=== PATIENT | male | born 1990 | race Caucasian/White ===

== ENCOUNTER 2022-09-01 18:22 | Inpatient (IN) ==
[2022-09-01] MEDS ORDERED: Naloxone 0.4 MG/ML INJ IVP PRN (20:33)
[2022-09-01] MEDS ORDERED: Acetaminophen 325 MG TABLET PO PRN (20:33)
[2022-09-01] MEDS ORDERED: Melatonin 3 MG TABLET PO PRN (20:33)
[2022-09-01] MEDS: Pantoprazole 40 MG in 0.9 % Sodium Chloride Mini Bag 100 ML IVC SCH (21:12)
[2022-09-01] MEDS: Ringers Solution, Lactated 1,000 ML IVC SCH (21:13)
[2022-09-01] MEDS ORDERED: Pregabalin 50 MG CAPSULE PO SCH (21:45)
[2022-09-01] MEDS: cefTRIAXone 1,000 MG in 0.9 % Sodium Chloride Mini Bag 100 ML IVPB SCH (22:07)
[2022-09-01] MEDS: *HR* OxyCODONE Immed Rel 15 MG TABLET PO SCH (23:07)
[2022-09-01] MEDS: Ondansetron 4 MG/2 ML VIAL IVP PRN (23:10)
[2022-09-01 23:13] LABS: Basophils % 0.4 %; Platelet Count 159 K/mcL (140-400)
[2022-09-01 23:15] LABS: Basophils # 0.1 K/mcL (0.0-0.2); Eosinophils # 0.1 K/mcL (0.0-0.6); Eosinophils % 0.5 %; Hematocrit 46.3 % (37.5-50.1); Hemoglobin 15.6 g/dL (12.9-16.9); Immature Granulocytes % 0.6 % (0-4); Lymphocytes # 1.4 K/mcL (0.6-4.6); Lymphocytes % 5.2 %; Mean Corpuscular HGB Conc 33.7 g/dL (31.6-35.5); Mean Platelet Volume 11.4 fL (9.4-12.4); Monocytes # 3.3 K/mcL (0.0-1.3); Monocytes % 12.3 %; Neutrophils # 21.8 K/mcL (1.6-8.9); Red Blood Count 5.03 M/mcL (4.19-5.50); White Blood Count 26.9 K/mcL (4.3-11.1)
[2022-09-01 23:32] LABS: Reactive Lymphocytes Present (Not Present)
[2022-09-01 23:35] LABS: BUN/Creatinine Ratio 64 (6-26); Blood Urea Nitrogen 48 mg/dL (6-20); Calcium 5.9 mg/dL (8.6-10.3); Carbon Dioxide 23 mEq/L (23-29); Chloride 102 mEq/L (98-107); Glucose 120 mg/dL (70-105); Osmolality,Calculated 286 (280-300); Potassium 4.1 mEq/L (3.5-5.1); Sodium 131 mEq/L (136-145)
[2022-09-02] MEDS ORDERED: *HR* OxyCODONE/APAP 10/325 TABLET PO SCH
[2022-09-02] MEDS: Calcium Gluconate 1gm/50mL 1 GM/50 ML BAG IVPB SCH ×2 (03:18→03:58)
[2022-09-02] MEDS: Pantoprazole 40 MG in 0.9 % Sodium Chloride Mini Bag 100 ML IVC SCH ×4 (03:19→23:50)
[2022-09-02 04:52] LABS: Mean Platelet Volume 11.5 fL (9.4-12.4)
[2022-09-02 04:54] LABS: Hematocrit 46.2 % (37.5-50.1); Hemoglobin 15.5 g/dL (12.9-16.9); Mean Corpuscular HGB Conc 33.5 g/dL (31.6-35.5); Mean Corpuscular Hemoglobin 30.9 pg (28.0-33.3); Platelet Count 148 K/mcL (140-400); Red Blood Count 5.02 M/mcL (4.19-5.50); White Blood Count 27.1 K/mcL (4.3-11.1)
[2022-09-02 05:00] LABS: INR 1.7; Prothrombin Time 18.9 Seconds (9.4-12.1)
[2022-09-02 05:01] LABS: VBG Ionized Calcium 1.11 mmol/L (1.15-1.35)
[2022-09-02 05:03] LABS: Activated Partial Thrombo Time 31.7 Seconds (26.0-36.0)
[2022-09-02 05:10] LABS: BUN/Creatinine Ratio 58 (6-26); Blood Urea Nitrogen 45 mg/dL (6-20); Calcium 7.9 mg/dL (8.6-10.3); Carbon Dioxide 25 mEq/L (23-29); Chloride 99 mEq/L (98-107); Chol/HDL Ratio 6.4 (0-4.9); Cholesterol 103 mg/dL (< 200); Glucose 120 mg/dL (70-105); HDL Cholesterol 16 mg/dL (40-59); LDL Cholesterol,Calculated 42 mg/dL (< 100); Magnesium 2.1 mg/dL (1.6-2.6); Osmolality,Calculated 285 (280-300); Phosphorous 2.5 mg/dL (2.7-4.5); Potassium 4.6 mEq/L (3.5-5.1); Sodium 131 mEq/L (136-145); Triglycerides 224 mg/dL (< 150)
[2022-09-02] MEDS: *HR* OxyCODONE Immed Rel 15 MG TABLET PO SCH ×4 (05:33→23:50)
[2022-09-02 05:39] LABS: Lymphocytes # 2.2 K/mcL (0.6-4.6); Monocytes # 3.8 K/mcL (0.0-1.3); Neutrophils # 21.1 K/mcL (1.6-8.9)
[2022-09-02] MEDS: Pregabalin 75 MG CAPSULE PO SCH ×3 (07:56→20:37)
[2022-09-02] MEDS: tiZANidine 4 MG TABLET PO SCH (07:56)
[2022-09-02] MEDS: Cholecalciferol (D-3) 1,000 UNIT (25MCG) TABLET PO SCH (07:56)
[2022-09-02] MEDS: Docusate Oral Soln 100 MG/10 ML UDC PO SCH (08:00)
[2022-09-02] MEDS ORDERED: Simethicone 40 MG/0.6 ML MLS ONE (13:36)
[2022-09-02] MEDS ORDERED: *HR* Propofol 200 MG/20 ML VIAL IVP ONE (13:50)
[2022-09-02] MEDS ORDERED: Lidocaine -MPF 2% 2 ML VIAL ONE (13:53)
[2022-09-02] MEDS ORDERED: Lidocaine -MPF 4% 5 ML AMPUL ONE (13:53)
[2022-09-02] MEDS ORDERED: DICLOFENAC SODIUM TP PRN (14:23)
[2022-09-02] MEDS ORDERED: 0.9 % Sodium Chloride 1,000 ML IV ONE (14:57)
[2022-09-02] MEDS ORDERED: NON-FORMULARY MEDICATION 1 EACH EACH (Pregabalin [Lyrica] 150 MG Capsule) PO SCH (15:00)
[2022-09-02] MEDS: ALPRAZolam 1 MG TABLET PO SCH ×2 (16:58→20:37)
[2022-09-02] MEDS: MetroNIDAZOLE 500 MG/100 ML 500 MG/100 ML BAG IVPB SCH (20:32)
[2022-09-02] MEDS: Sennosides 8.6 MG TABLET PO SCH (20:40)
[2022-09-02] MEDS: cefTRIAXone 1,000 MG in 0.9 % Sodium Chloride Mini Bag 100 ML IVPB SCH (20:42)
[2022-09-03] MEDS: MetroNIDAZOLE 500 MG/100 ML 500 MG/100 ML BAG IVPB SCH (01:55)
[2022-09-03 02:16] LABS: Hemoglobin 14.3 g/dL (12.9-16.9); Mean Corpuscular Hemoglobin 31.2 pg (28.0-33.3); Mean Corpuscular Volume 91.9 fL (83.0-100.0); Red Cell Distribution Width 13.1 % (11.5-14.5)
[2022-09-03 02:18] LABS: Basophils # 0.1 K/mcL (0.0-0.2); Basophils % 0.5 %; Hematocrit 42.1 % (37.5-50.1); Immature Granulocytes % 4.9 % (0-4); Immature Platelets 9.2 % (1.1-6.1); Lymphocytes # 1.2 K/mcL (0.6-4.6); Lymphocytes % 6.4 %; Mean Platelet Volume 11.6 fL (9.4-12.4); Monocytes # 2.4 K/mcL (0.0-1.3); Monocytes % 13.1 %; Neutrophils # 13.8 K/mcL (1.6-8.9); Platelet Count 121 K/mcL (140-400); Red Blood Count 4.58 M/mcL (4.19-5.50); Segmented Neutrophils % 75.1 %; White Blood Count 18.4 K/mcL (4.3-11.1)
[2022-09-03 02:30] LABS: BUN/Creatinine Ratio 53 (6-26); Blood Urea Nitrogen 41 mg/dL (6-20); Calcium 7.4 mg/dL (8.6-10.3); Carbon Dioxide 27 mEq/L (23-29); Chloride 103 mEq/L (98-107); Glucose 111 mg/dL (70-105); Osmolality,Calculated 287 (280-300); Potassium 4.3 mEq/L (3.5-5.1); Sodium 133 mEq/L (136-145)
[2022-09-03] MEDS: Pantoprazole 40 MG in 0.9 % Sodium Chloride Mini Bag 100 ML IVC SCH ×4 (03:54→16:45)
[2022-09-03] MEDS: Ringers Solution, Lactated 1,000 ML IVC SCH (03:55)
[2022-09-03] MEDS: *HR* OxyCODONE Immed Rel 15 MG TABLET PO SCH ×3 (05:36→17:59)
[2022-09-03] MEDS ORDERED: NON-FORMULARY MEDICATION 1 EACH EACH (Cholecalciferol (Vitamin D3) [Vitamin D3] 25 MCG Cap PO SCH (09:00)
[2022-09-03] MEDS: Piperacillin/Tazobactam 3.375 GM in 0.9 % Sodium Chloride Mini Bag 100 ML IVPB SCH ×3 (09:16→23:14)
[2022-09-03] MEDS: Pregabalin 75 MG CAPSULE PO SCH ×3 (11:20→20:34)
[2022-09-03] MEDS: Cholecalciferol (D-3) 1,000 UNIT (25MCG) TABLET PO SCH (11:23)
[2022-09-03] MEDS: Loratadine 10 MG TABLET PO SCH (11:23)
[2022-09-03] MEDS: tiZANidine 4 MG TABLET PO SCH (11:23)
[2022-09-03] MEDS: ALPRAZolam 1 MG TABLET PO SCH (11:24)
[2022-09-03] MEDS: Sennosides 8.6 MG TABLET PO SCH ×3 (11:27→21:58)
[2022-09-03] MEDS: Docusate Oral Soln 100 MG/10 ML UDC PO SCH (11:27)
[2022-09-03] MEDS ORDERED: 0.9 % Sodium Chloride 1,000 ML ONE ×2 (15:02→18:16)
[2022-09-03] MEDS ORDERED: Albumin 25% 25gram/100mL 25 GM/100 ML IV.SOLN IVPB ONE (22:38)
[2022-09-04] MEDS: Pantoprazole 40 MG in 0.9 % Sodium Chloride Mini Bag 100 ML IVC SCH ×5 (02:53→21:44)
[2022-09-04] MEDS ORDERED: Albumin 25% 25gram/100mL 25 GM/100 ML IV.SOLN IVPB ONE (06:53)
[2022-09-04] MEDS: Loratadine 10 MG TABLET PO SCH (08:45)
[2022-09-04] MEDS: Pregabalin 75 MG CAPSULE PO SCH ×3 (08:46→20:10)
[2022-09-04] MEDS: Sennosides 8.6 MG TABLET PO SCH ×2 (08:46→20:10)
[2022-09-04] MEDS: Cholecalciferol (D-3) 1,000 UNIT (25MCG) TABLET PO SCH (08:46)
[2022-09-04] MEDS: Docusate Oral Soln 100 MG/10 ML UDC PO SCH (08:48)
[2022-09-04 09:36] LABS: Mean Platelet Volume 11.5 fL (9.4-12.4); Red Cell Distribution Width 13.2 % (11.5-14.5)
[2022-09-04 09:38] LABS: Hematocrit 36.1 % (37.5-50.1); Hemoglobin 12.2 g/dL (12.9-16.9); Immature Platelets 8.8 % (1.1-6.1); Mean Corpuscular HGB Conc 33.8 g/dL (31.6-35.5); Mean Corpuscular Volume 91.6 fL (83.0-100.0); Monocytes # 1.2 K/mcL (0.0-1.3); Nucleated Red Blood Cells 0.2 /100 WBC (0); Platelet Count 103 K/mcL (140-400); Red Blood Count 3.94 M/mcL (4.19-5.50); White Blood Count 10.1 K/mcL (4.3-11.1)
[2022-09-04 10:18] LABS: Lymphocytes # 1.2 K/mcL (0.6-4.6); Neutrophils # 7.5 K/mcL (1.6-8.9)
[2022-09-04 10:19] LABS: Platelet Estimate Slight Decrease (Normal)
[2022-09-04 11:05] LABS: BUN/Creatinine Ratio 37 (6-26); Blood Urea Nitrogen 22 mg/dL (6-20); Calcium 7.4 mg/dL (8.6-10.3); Carbon Dioxide 26 mEq/L (23-29); Chloride 108 mEq/L (98-107); Glucose 87 mg/dL (70-105); Osmolality,Calculated 291 (280-300); Potassium 2.9 mEq/L (3.5-5.1); Sodium 139 mEq/L (136-145)
[2022-09-04] MEDS: Piperacillin/Tazobactam 3.375 GM in 0.9 % Sodium Chloride Mini Bag 100 ML IVPB SCH ×2 (11:08→21:35)
[2022-09-04] MEDS: 0.9 % Sodium Chloride 1,000 ML IVC SCH ×2 (11:20→21:36)
[2022-09-04 12:29] LABS: Adenovirus F 40/41 PCR Not detected (Not detect); Astrovirus PCR Not detected (Not detect); Campylobacter by PCR Not detected (Not detect); Cryptosporidium by PCR Not detected (Not detect); Cyclospora cayetanensis PCR Not detected (Not detect); Entamoeba histolytica PCR Not detected (Not detect); Enteroaggregative E.coli(EAEC) Not detected (Not detect); Enteropathogenic E.coli(EPEC) Not detected (Not detect); Enterotoxigenic E.coli (ETEC) Not detected (Not detect); Giardia lamblia PCR Not detected (Not detect); Norovirus GI/GII PCR Not detected (Not detect); Plesiomonas shigelloides PCR Not detected (Not detect); Rotavirus A PCR Not detected (Not detect); Salmonella PCR Not detected (Not detect); Sapovirus PCR Not detected (Not detect); Shig/EnteroinvasiveE coli EIEC Not detected (Not detect); Shigalike tox-prod E coli STEC Not detected (Not detect); Vibrio PCR Not detected (Not detect); Vibrio cholerae PCR Not detected (Not detect); Yersinia enterocolitica PCR Not detected (Not detect)
[2022-09-04 12:48] LABS: C.difficile Toxin A/B Gene PCR DETECTED (Not detect)
[2022-09-04] MEDS ORDERED: *HR* Propofol 200 MG/20 ML VIAL IVP ONE (13:19)
[2022-09-04] MEDS ORDERED: Lidocaine -MPF 2% 2 ML VIAL ONE (13:19)
[2022-09-04] MEDS: Albumin 25% 25gram/100mL 25 GM/100 ML IV.SOLN IVPB ONE ×2 (15:54→17:41)
[2022-09-04] MEDS: Vancomycin Oral Soln 125 MG/2.5 ML UDC PO SCH ×2 (16:48→20:10)
[2022-09-04] MEDS ORDERED: Potassium Chloride Elixir 20 MEQ/15 ML UDC PO SCH (21:00)
[2022-09-05] MEDS: Pantoprazole 40 MG in 0.9 % Sodium Chloride Mini Bag 100 ML IVC SCH ×2 (02:41→18:19)
[2022-09-05] MEDS: Piperacillin/Tazobactam 3.375 GM in 0.9 % Sodium Chloride Mini Bag 100 ML IVPB SCH ×4 (03:03→21:07)
[2022-09-05 05:33] LABS: Basophils % 0.1 %; Eosinophils # 0.1 K/mcL (0.0-0.6); Eosinophils % 1.4 %; Hematocrit 31.4 % (37.5-50.1); Hemoglobin 10.9 g/dL (12.9-16.9); Immature Granulocytes % 11.7 % (0-4); Lymphocytes # 1.1 K/mcL (0.6-4.6); Mean Corpuscular HGB Conc 34.7 g/dL (31.6-35.5); Mean Corpuscular Hemoglobin 31.6 pg (28.0-33.3); Mean Platelet Volume 10.8 fL (9.4-12.4); Monocytes # 0.9 K/mcL (0.0-1.3); Monocytes % 10.4 %; Neutrophils # 5.6 K/mcL (1.6-8.9); Platelet Count 111 K/mcL (140-400); Red Blood Count 3.45 M/mcL (4.19-5.50); Red Cell Distribution Width 13.5 % (11.5-14.5); Segmented Neutrophils % 63.4 %; White Blood Count 8.8 K/mcL (4.3-11.1)
[2022-09-05 05:37] LABS: Platelet Estimate Slight Decrease (Normal)
[2022-09-05 05:50] LABS: BUN/Creatinine Ratio 20 (6-26); Blood Urea Nitrogen 9 mg/dL (6-20); Calcium 7.4 mg/dL (8.6-10.3); Carbon Dioxide 24 mEq/L (23-29); Chloride 114 mEq/L (98-107); Glucose 88 mg/dL (70-105); Osmolality,Calculated 296 (280-300); Potassium 2.8 mEq/L (3.5-5.1); Sodium 144 mEq/L (136-145)
[2022-09-05] MEDS: *HR* OxyCODONE Immed Rel 15 MG TABLET PO SCH ×4 (09:52→23:35)
[2022-09-05] MEDS: Vancomycin Oral Soln 125 MG/2.5 ML UDC PO SCH ×4 (10:01→21:07)
[2022-09-05] MEDS: Loratadine 10 MG TABLET PO SCH (10:02)
[2022-09-05] MEDS: Docusate Oral Soln 100 MG/10 ML UDC PO SCH (10:03)
[2022-09-05] MEDS: Cholecalciferol (D-3) 1,000 UNIT (25MCG) TABLET PO SCH (10:03)
[2022-09-05] MEDS: Pregabalin 75 MG CAPSULE PO SCH ×3 (10:03→21:06)
[2022-09-05] MEDS: Sennosides 8.6 MG TABLET PO SCH ×2 (10:04→21:54)
[2022-09-05] MEDS: Potassium Chloride Elixir 20 MEQ/15 ML UDC PO SCH ×2 (10:11→21:07)
[2022-09-05] MEDS: 0.9 % Sodium Chloride 1,000 ML IVC SCH (11:40)
[2022-09-05] MEDS: Ringers Solution, Lactated 1,000 ML IVC SCH (11:51)
[2022-09-06] MEDS: *HR* OxyCODONE Immed Rel 15 MG TABLET PO SCH ×3 (05:47→18:31)
[2022-09-06] MEDS: Piperacillin/Tazobactam 3.375 GM in 0.9 % Sodium Chloride Mini Bag 100 ML IVPB SCH ×3 (05:48→21:21)
[2022-09-06 08:55] LABS: Hematocrit 34.3 % (37.5-50.1); Hemoglobin 11.8 g/dL (12.9-16.9); Mean Corpuscular HGB Conc 34.4 g/dL (31.6-35.5); Mean Corpuscular Hemoglobin 31.4 pg (28.0-33.3); Mean Corpuscular Volume 91.2 fL (83.0-100.0); Mean Platelet Volume 10.5 fL (9.4-12.4); Monocytes # 0.9 K/mcL (0.0-1.3); Platelet Count 118 K/mcL (140-400); Red Blood Count 3.76 M/mcL (4.19-5.50); Red Cell Distribution Width 14.2 % (11.5-14.5); White Blood Count 9.4 K/mcL (4.3-11.1)
[2022-09-06 09:15] LABS: BUN/Creatinine Ratio 10 (6-26); Blood Urea Nitrogen 4 mg/dL (6-20); Carbon Dioxide 25 mEq/L (23-29); Chloride 112 mEq/L (98-107); Glucose 95 mg/dL (70-105); Magnesium 1.6 mg/dL (1.6-2.6); Osmolality,Calculated 287 (280-300); Potassium 3.1 mEq/L (3.5-5.1); Sodium 140 mEq/L (136-145); Vancomycin,Trough 18 mcg/mL (5-10)
[2022-09-06 09:34] LABS: Eosinophils # 0.2 K/mcL (0.0-0.6); Lymphocytes # 1.1 K/mcL (0.6-4.6); Neutrophils # 5.6 K/mcL (1.6-8.9)
[2022-09-06 09:36] LABS: Platelet Estimate Slight Decrease (Normal)
[2022-09-06] MEDS: Vancomycin Oral Soln 125 MG/2.5 ML UDC PO SCH ×4 (10:04→21:21)
[2022-09-06] MEDS: Potassium Chloride Elixir 20 MEQ/15 ML UDC PO SCH ×2 (10:05→21:22)
[2022-09-06] MEDS: Loratadine 10 MG TABLET PO SCH (10:05)
[2022-09-06] MEDS: Pregabalin 75 MG CAPSULE PO SCH ×3 (10:05→21:20)
[2022-09-06] MEDS: Cholecalciferol (D-3) 1,000 UNIT (25MCG) TABLET PO SCH (10:05)
[2022-09-06] MEDS: Ringers Solution, Lactated 1,000 ML IVC SCH (10:07)
[2022-09-06] MEDS ORDERED: Vancomycin 1,500 MG/265 ML IV.SOLN IVPB SCH (13:00)
[2022-09-07] MEDS: *HR* OxyCODONE Immed Rel 15 MG TABLET PO SCH ×2 (00:14→07:35)
[2022-09-07] MEDS: Piperacillin/Tazobactam 3.375 GM in 0.9 % Sodium Chloride Mini Bag 100 ML IVPB SCH (05:15)
[2022-09-07 08:48] LABS: Hematocrit 34.8 % (37.5-50.1); Hemoglobin 11.8 g/dL (12.9-16.9); Mean Corpuscular HGB Conc 33.9 g/dL (31.6-35.5); Mean Corpuscular Hemoglobin 30.7 pg (28.0-33.3); Mean Corpuscular Volume 90.6 fL (83.0-100.0); Mean Platelet Volume 10.5 fL (9.4-12.4); Platelet Count 115 K/mcL (140-400); Red Blood Count 3.84 M/mcL (4.19-5.50); Red Cell Distribution Width 14.4 % (11.5-14.5)
[2022-09-07 09:05] LABS: BUN/Creatinine Ratio 4 (6-26); Blood Urea Nitrogen 2 mg/dL (6-20); Calcium 7.2 mg/dL (8.6-10.3); Carbon Dioxide 24 mEq/L (23-29); Chloride 111 mEq/L (98-107); Glucose 96 mg/dL (70-105); Magnesium 1.8 mg/dL (1.6-2.6); Osmolality,Calculated 288 (280-300); Potassium 3.1 mEq/L (3.5-5.1); Sodium 141 mEq/L (136-145)
[2022-09-07 09:31] LABS: Eosinophils # 0.3 K/mcL (0.0-0.6); Lymphocytes # 0.4 K/mcL (0.6-4.6)
[2022-09-07 09:34] LABS: Platelet Estimate Slight Decrease (Normal)
[2022-09-07] MEDS: Vancomycin Oral Soln 125 MG/2.5 ML UDC PO SCH ×2 (09:56→13:54)
[2022-09-07] MEDS: Cholecalciferol (D-3) 1,000 UNIT (25MCG) TABLET PO SCH (09:56)
[2022-09-07] MEDS: Pregabalin 75 MG CAPSULE PO SCH ×2 (09:56→15:31)
[2022-09-07] MEDS: Loratadine 10 MG TABLET PO SCH (09:56)
[2022-09-07] MEDS: Potassium Chloride Elixir 20 MEQ/15 ML UDC PO SCH (09:57)
[2022-09-07] MEDS: Ondansetron 4 MG/2 ML VIAL IVP PRN (10:11)
[2022-09-07 11:05] LABS: Influenza A PCR Negative (Negative); Influenza B PCR Negative (Negative); Resp. Syncytial Virus PCR Negative (Negative)
[2022-09-07 11:08] LABS: SARS-CoV-2 by PCR (In House) Negative (Negative)
[2022-09-07 12:17] VITALS: BP 100/66; PULSE 114; TEMP 98.3; O2SAT 96
[2022-09-07] MEDS ORDERED: *HR* OxyCODONE Immed Rel 15 MG TABLET PO SCH (14:00)
== END 2022-09-07 17:06 | DRG 720 ==
LOC: 3ANU → SUATTDRO 19:48
PROVIDERS: ADMIT Internal Medicine; ATTEND Family Medicine
PROC: ENDOEBX (2022-09-04 14:00)